=== PATIENT | male | born 1970 | race Caucasian/White ===

== ENCOUNTER 2016-12-06 01:53 | Emergency (ER) | payer MEDICAID, SELFPAY ==
[~2016-12-06] VITALS: Ht 175.3 cm; Wt 83.9 kg
[2016-12-06] MEDS ORDERED: PERC5TAB6 PO (03:26)
[2016-12-06] MEDS ORDERED: CLEO300C2 PO (03:26)
[2016-12-06] MEDS ORDERED: OXYCODONE/APAP 5MG/325MG(BULK FOR ED) 1 TABLET PO ONE (03:30)
[2016-12-06] MEDS ORDERED: CLINDAMYCIN 150 MG CAP PO ONE (03:30)
[2016-12-06 03:54] VITALS: BP 135/84
== END 2016-12-06 03:55 | disposition home or self-care (01) ==
LOC: M ED 03:35
DX: K08.89 Other specified disorders of teeth and supporting structures (principal)